=== PATIENT | female | born 1935 | race Caucasian/White ===

== ENCOUNTER 2021-06-06 13:31 | Inpatient (IN) | payer MEDICARE, BC ==
[~2021-06-06] VITALS: Ht 162.6 cm; Wt 98.0 kg
[2021-06-06] MEDS ORDERED: MONT10TA22 PO (14:21)
[2021-06-06] MEDS ORDERED: UBID100C13 PO (14:21)
[2021-06-06] MEDS ORDERED: METO-358 PO (14:21)
[2021-06-06] MEDS ORDERED: BUPR100T6 PO (14:21)
[2021-06-06] MEDS ORDERED: AMLO1CAP2 PO (14:21)
[2021-06-06] MEDS ORDERED: ACET-2154 PO (14:21)
[2021-06-06] MEDS ORDERED: CYAN-51 PO (14:21)
[2021-06-06] MEDS ORDERED: HYDR100T27 PO (14:21)
[2021-06-06] MEDS ORDERED: BUPR100T5 PO (14:21)
[2021-06-06] MEDS ORDERED: ASPI-869 PO (14:21)
[2021-06-06] MEDS ORDERED: ALBU8.5H8 INH (14:21)
[2021-06-06] MEDS ORDERED: OMEP40CA21 PO (14:21)
[2021-06-06] MEDS ORDERED: SIMV-49 PO (14:21)
[2021-06-06] MEDS ORDERED: GABA-532 PO (14:21)
[2021-06-06] MEDS ORDERED: MV-M1TAB18 PO (14:21)
[2021-06-06] MEDS ORDERED: ALPR0.5T8 PO (14:21)
[2021-06-06] MEDS ORDERED: DULO60CA45 PO (14:21)
[2021-06-06] MEDS ORDERED: MECLIZINE HCL 25 MG TABLET PO ONE ×2 (14:30→19:00)
[2021-06-06] MEDS ORDERED: MECLIZINE HCL 25 MG TABLET ONE ×2 (14:50→19:16)
[2021-06-06 15:27] LABS: HEMATOCRIT 32.3 % (31.2-41.9); MEAN CORPUSCULAR VOLUME 91.8 fL (75.5-95.3); PLATELET COUNT (AUTO) 215 K/uL (179-408)
--- NOTE | 2021-06-06 15:30 | NUR ---
Pt resting with NAD noted at this time.
[2021-06-06 15:34] LABS: CARBON DIOXIDE 24 mmol/L (21-32); CHLORIDE 107 mmol/L (98-107); CREATININE 2.2 mg/dL (0.6-1.3); GLUCOSE 109 mg/dL (74-106); POTASSIUM 4.6 mmol/L (3.5-5.1); UREA NITROGEN, BLOOD 51 mg/dL (7-18)
--- NOTE | 2021-06-06 17:00 | NUR ---
Per pt to be admitted to tele, [facility] paged and called tele floor for bed assignment.
[2021-06-06] MEDS ORDERED: ACETAMINOPHEN ES 500 MG TABLET PO ONE (19:00)
[2021-06-06] MEDS ORDERED: FUROSEMIDE 40 MG/4 ML VIAL IV ONE (19:00)
[2021-06-06] MEDS ORDERED: diphenhydrAMINE 50 MG/1 ML VIAL IV ONE (19:00)
[2021-06-06] MEDS ORDERED: METOCLOPRAMIDE HCL 10 MG/2 ML VIAL IV ONE (19:00)
[2021-06-06] MEDS ORDERED: ACETAMINOPHEN ES 500 MG TABLET ONE (19:15)
[2021-06-06] MEDS ORDERED: predniSONE 20 MG TABLET PO ONE (19:15)
[2021-06-06] MEDS ORDERED: diphenhydrAMINE 50 MG/1 ML VIAL ONE (19:16)
[2021-06-06] MEDS ORDERED: predniSONE 20 MG TABLET ONE (19:16)
[2021-06-06] MEDS ORDERED: FUROSEMIDE 40 MG/4 ML VIAL ONE (19:16)
[2021-06-06] MEDS ORDERED: predniSONE 10 MG TABLET ONE (19:16)
[2021-06-06] MEDS ORDERED: METOCLOPRAMIDE HCL 10 MG/2 ML VIAL ONE (19:16)
[2021-06-06] MEDS ORDERED: predniSONE 50 MG TABLET ONE (19:16)
--- NOTE | 2021-06-06 20:00 | NUR ---
Pt ate dinner, tolerated well, NAD noted.
--- NOTE | 2021-06-06 21:30 | NUR ---
SBAR report given to Isha on tele floor via telephone.
--- NOTE | 2021-06-06 22:20 | NUR ---
Pt trans to tele floor, NAD noted.
--- NOTE | 2021-06-06 22:30 | NUR ---
RECEIVED PATIENT VIA W/C FROM ER. A/O X4. DENIES ANY PAIN OR DISCOMFORT. NO RESP. DISTRESS NOTED. DENIES SOB. VS WNL. H/L INTACT AND PATENT. ORIENTED TO ROOM AND CALL LIGHT. CALL LIGHT IN REACH. ALL NEEDS ATTENDED. WILL CONTINUE TO MONITOR AND ASSESS.
[2021-06-06 22:40] VITALS: BP 178/52
[2021-06-06] MEDS ORDERED: BUMETANIDE INJ 6 MG in IV DEXTROSE 5% 36 ML IV ONE (23:30)
[2021-06-06] MEDS ORDERED: ALBUTEROL SULFATE 8 GM HFA.AER.AD INH PRN (23:30)
[2021-06-06] MEDS ORDERED: ONDANSETRON 4 MG/2 ML VIAL IV PRN (23:45)
[2021-06-06] MEDS ORDERED: Z GUARD REMEDY PASTE 57 GM TUBE TOP PRN (23:45)
[2021-06-06] MEDS ORDERED: ENOXAPARIN SODIUM 40 MG/0.4 ML DISP.SYRIN SQ SCH (23:45)
[2021-06-07 00:03] VITALS: BP 155/50
[2021-06-07] MEDS ORDERED: BUMETANIDE 2.5 MG/10 ML VIAL ONE (00:14)
[2021-06-07] MEDS ORDERED: BUMETANIDE 1 MG/4 ML VIAL ONE (00:14)
[2021-06-07 04:15] VITALS: BP 160/53
[2021-06-07 05:54] LABS: HEMATOCRIT 34.1 % (31.2-41.9); MEAN CORPUSCULAR HEMOGLOBIN 29.9 uug (24.7-32.8); MEAN CORPUSCULAR VOLUME 92.6 fL (75.5-95.3); PLATELET COUNT (AUTO) 223 K/uL (179-408)
[2021-06-07 06:03] LABS: ALANINE AMINOTRANSFERASE 11 U/L (14-59); ALKALINE PHOSPHATASE 91 U/L (50-136); ASPARTATE AMINOTRANSFERASE 8 U/L (15-37); BILIRUBIN,TOTAL 0.3 mg/dL (0.2-1.0); CARBON DIOXIDE 23 mmol/L (21-32); CHLORIDE 107 mmol/L (98-107); CHOLESTEROL 125 mg/dL (<200); CREATININE 2.4 mg/dL (0.6-1.3); GLUCOSE 182 mg/dL (74-106); HDL CHOLESTEROL 73 mg/dL (40-60); MAGNESIUM 2.3 mg/dL (1.8-2.4); PHOSPHOROUS 4.1 mg/dL (2.5-4.9); POTASSIUM 4.5 mmol/L (3.5-5.1); TOTAL PROTEIN, SERUM 7.3 g/dL (6.4-8.2); TRIGLYCERIDES 48 MG/DL (30-150); UREA NITROGEN, BLOOD 52 mg/dL (7-18)
[2021-06-07 06:11] LABS: THYROID STIMULATING HORMONE 1.135 mIU/mL (0.358-3.740)
--- NOTE | 2021-06-07 06:20 | NUR ---
PATIENT ASLEEP. ON TELE SB. VSS. CALL LIGHT IN REACH. ALL NEEDS ATTENDED. WILL CONTINUE TO MONITOR AND ASSESS.
[2021-06-07] MEDS: methylPREDNISolone SOD SUCC 40 MG/ML VIAL IV SCH ×2 (06:34→14:00)
[2021-06-07] MEDS ORDERED: ALBUTEROL SULFATE 2.5 MG/3 ML NEBU NEB PRN (07:15)
[2021-06-07] MEDS: ACETAMINOPHEN 325 MG TABLET PO PRN ×2 (08:48→20:32)
[2021-06-07] MEDS: AMLODIPINE 10 MG TABLET PO SCH (08:49)
[2021-06-07] MEDS: buPROPion SR 100 MG TABLET.SA PO SCH (08:49)
[2021-06-07] MEDS: MONTELUKAST SODIUM 10 MG TABLET PO SCH (08:49)
[2021-06-07] MEDS: ASPIRIN EC 325 MG TABLET.DR PO SCH (08:49)
[2021-06-07] MEDS: GABAPENTIN 100 MG CAPSULE PO SCH ×2 (08:49→17:30)
[2021-06-07] MEDS: DULOXETINE 60 MG CAPSULE.DR PO SCH (08:49)
[2021-06-07] MEDS: ALPRAZOLAM 0.5 MG TABLET PO SCH ×2 (08:49→17:29)
[2021-06-07] MEDS: hydrALAZINE HCL 50 MG TABLET PO SCH ×3 (08:49→17:31)
[2021-06-07] MEDS: BENAZEPRIL HCL 20 MG TABLET PO SCH (08:50)
[2021-06-07] MEDS: CYANOCOBALAMIN 1,000 MCG TABLET PO SCH (08:50)
[2021-06-07] MEDS: METOPROLOL SUCCINATE XL 50 MG TAB.SR.24H PO SCH (08:51)
[2021-06-07] MEDS: ENOXAPARIN SODIUM 30 MG/0.3 ML DISP.SYRIN SUBCUT SCH (08:52)
--- NOTE | 2021-06-07 10:00 | NUR ---
AWAKE, ALERT & ORIENTED. SEEN BY DR. CAPONE. MED. PO FOR C/O H/A WITH MINIMAL EFFECT AFTER 45 MINS. MDS AWARE.
[2021-06-07 12:00] VITALS: BP 152/55
--- NOTE | 2021-06-07 16:00 | NUR ---
SEEN BY DR. PALACIOS. ORDERS RECEIVED. SON AT BEDSIDE.
[2021-06-07 16:32] VITALS: BP 163/53
[2021-06-07] MEDS ORDERED: methylPREDNISolone SOD SUCC 1,000 MG in IV DEXTROSE 5% 250 ML IV SCH (17:30)
[2021-06-07] MEDS: SIMVASTATIN 40 MG TABLET PO SCH (17:30)
[2021-06-07] MEDS ORDERED: METHYLPREDNISOLONE SOD SUCC IV ONE (18:00)
[2021-06-07] MEDS ORDERED: DEXTROSE 5% IV ONE (18:00)
[2021-06-07] MEDS: IPRATROPIUM BROMIDE 0.5 MG/2.5 ML NEBU NEB SCH (20:05)
[2021-06-07] MEDS: ALBUTEROL SULFATE 2.5 MG/3 ML NEBU NEB SCH (20:06)
[2021-06-07 20:23] LABS: *BILIRUBIN,URIN NEGATIVE (NEGATIVE); *BLOOD, URINE NEGATIVE (NEGATIVE); *CLARITY,URINE CLEAR (CLEAR); *COLOR,URINE YELLOW (YELLOW); *KETONES,URINE NEGATIVE (NEGATIVE); *UROBILINOGEN,URINE 0.2 E.U./dl (NORMAL); LEUKOCYTE ESTERASE ,URINE NEGATIVE (NEGATIVE); NITRITE, URINE NEGATIVE (NEGATIVE); PH,URINE 5.5 (5.0-8.0); UGLUCOSE NEGATIVE (NEGATIVE)
[2021-06-07 20:25] LABS: *URINE TOTAL PROTEIN RANDOM 106.2 mg/dL (<150/24HR)
[2021-06-07 20:30] LABS: BACTERIA,URINE FEW /HPF (NONE SEEN); RBC,URINE 0-3 /HPF (0-3); SQUAMOUS EPITHELIAL CELL,UR FEW /HPF (NONE SEEN)
[2021-06-07] MEDS: FUROSEMIDE 20 MG/2 ML VIAL IV SCH (20:32)
[2021-06-07 21:40] VITALS: BP 140/47
[2021-06-08 00:22] VITALS: BP 150/53
[2021-06-08 04:37] VITALS: BP 160/53
--- NOTE | 2021-06-08 05:23 | NUR ---
Patient AOx4. c/o MATTHEW at beginning of shift x1. Tylenol effective in achieving goal pain levels. Remains SR/SB on monitor. BP WNL overnight. BM x1 last night. Voids. No skin issues noted. No acute events occurred overnight.
[2021-06-08] MEDS: ALBUTEROL SULFATE 2.5 MG/3 ML NEBU NEB SCH ×3 (07:41→19:03)
[2021-06-08] MEDS: IPRATROPIUM BROMIDE 0.5 MG/2.5 ML NEBU NEB SCH ×3 (07:41→19:03)
[2021-06-08 07:55] LABS: ALANINE AMINOTRANSFERASE 10 U/L (14-59); ALKALINE PHOSPHATASE 85 U/L (50-136); ASPARTATE AMINOTRANSFERASE 12 U/L (15-37); BILIRUBIN,TOTAL 0.2 mg/dL (0.2-1.0); CARBON DIOXIDE 24 mmol/L (21-32); CHLORIDE 103 mmol/L (98-107); CREATINE KINASE, TOTAL 59 U/L (26-192); CREATININE 2.6 mg/dL (0.6-1.3); GLUCOSE 209 mg/dL (74-106); MAGNESIUM 2.3 mg/dL (1.8-2.4); PHOSPHOROUS 3.8 mg/dL (2.5-4.9); POTASSIUM 4.8 mmol/L (3.5-5.1); TOTAL PROTEIN, SERUM 7.1 g/dL (6.4-8.2); UREA NITROGEN, BLOOD 60 mg/dL (7-18)
[2021-06-08 08:00] VITALS: BP 147/68
--- NOTE | 2021-06-08 08:00 | NUR ---
RESTING IN BED NPO, FOR SURGERY THIS AFTERNOON. SR ON MONITOR
[2021-06-08] MEDS: METOPROLOL SUCCINATE XL 50 MG TAB.SR.24H PO SCH (08:30)
[2021-06-08 08:51] LABS: HEMATOCRIT 34.2 % (31.2-41.9); MEAN CORPUSCULAR VOLUME 91.9 fL (75.5-95.3); PLATELET COUNT (AUTO) 110 K/uL (179-408)
[2021-06-08] MEDS: ALPRAZOLAM 0.5 MG TABLET PO SCH ×2 (08:55→16:59)
[2021-06-08] MEDS: FUROSEMIDE 20 MG/2 ML VIAL IV SCH (08:56)
[2021-06-08] MEDS: hydrALAZINE HCL 50 MG TABLET PO SCH ×3 (08:57→17:00)
[2021-06-08] MEDS: CYANOCOBALAMIN 1,000 MCG TABLET PO SCH (08:57)
[2021-06-08] MEDS: ASPIRIN EC 325 MG TABLET.DR PO SCH (08:57)
[2021-06-08] MEDS: GABAPENTIN 100 MG CAPSULE PO SCH ×2 (08:57→16:59)
[2021-06-08] MEDS: AMLODIPINE 10 MG TABLET PO SCH (08:57)
[2021-06-08] MEDS: DULOXETINE 60 MG CAPSULE.DR PO SCH (08:58)
[2021-06-08] MEDS: BENAZEPRIL HCL 20 MG TABLET PO SCH (08:58)
[2021-06-08] MEDS: MONTELUKAST SODIUM 10 MG TABLET PO SCH (08:58)
[2021-06-08] MEDS: buPROPion SR 100 MG TABLET.SA PO SCH (08:58)
[2021-06-08] MEDS: ENOXAPARIN SODIUM 30 MG/0.3 ML DISP.SYRIN SUBCUT SCH (09:00)
[2021-06-08 12:00] VITALS: BP 114/51
--- NOTE | 2021-06-08 13:30 | NUR ---
BREATHING TX GIVEN PER PATIENT REQUEST
--- NOTE | 2021-06-08 13:43 | NUR ---
PATIENT WENT TO OR VIA [facility] FOR BX. REPORT GIVEN TO OR STAFF
--- NOTE | 2021-06-08 14:00 | NUR ---
BACK FROM SURGERY VIA [facility] AWAKE ALERT AND ORIENTED X3. DERMABOND DRESSING ON BILATERAL TEMPORAL AREA, NO SS OF BLEEDING. SR ON MONITOR
[2021-06-08] MEDS ORDERED: FENTANYL CITRATE 100 MCG/2 ML AMPUL ONE (14:15)
[2021-06-08] MEDS ORDERED: ALBUTEROL SULFATE 8 GM HFA.AER.AD ONE (14:16)
[2021-06-08] MEDS ORDERED: LIDOCAINE HCL 1% 20 ML VIAL ONE (14:25)
[2021-06-08] MEDS ORDERED: HYDROCODONE/APAP 5-325MG TABLET PO PRN (16:30)
[2021-06-08] MEDS: ACETAMINOPHEN 325 MG TABLET PO PRN (16:59)
[2021-06-08] MEDS: SIMVASTATIN 40 MG TABLET PO SCH (16:59)
[2021-06-08 17:00] VITALS: BP 180/53
--- NOTE | 2021-06-08 18:28 | NUR ---
NEYDA DISLODGED TRIED TO RESTART BUT TO NO AVAIL. MID LINE CALLED
[2021-06-08] MEDS: CLONIDINE HCL 0.1 MG TABLET PO SCH ×2 (20:26→22:00)
[2021-06-08 20:37] VITALS: BP 132/45
--- NOTE | 2021-06-08 21:00 | NUR ---
Rcvd pt. A/O x 4. In no acute distress. Midline in the KEN, newly inserted, patent and intact. Temporal biopsy site clean, dry and intact. No bleeding noted. Safety initiated. Call light within reach. Will continue to monitor.
[2021-06-08] MEDS: methylPREDNISolone SOD SUCC 1,000 MG in IV DEXTROSE 5% 250 ML IV SCH (21:49)
--- NOTE | 2021-06-08 22:00 | NUR ---
2200 Catapres held because last dose was less then 2 hours ago. BP WNL. Will closely monitor.
[2021-06-09 00:27] VITALS: BP 144/51
[2021-06-09 04:30] VITALS: BP 115/55
[2021-06-09] MEDS: CLONIDINE HCL 0.1 MG TABLET PO SCH ×3 (05:19→21:00)
[2021-06-09 06:31] LABS: HEMATOCRIT 33.4 % (31.2-41.9); MEAN CORPUSCULAR HEMOGLOBIN 30.1 uug (24.7-32.8); MEAN CORPUSCULAR VOLUME 92.3 fL (75.5-95.3); PLATELET COUNT (AUTO) 256 K/uL (179-408)
[2021-06-09 06:58] LABS: CARBON DIOXIDE 26 mmol/L (21-32); CHLORIDE 105 mmol/L (98-107); CREATININE 2.9 mg/dL (0.6-1.3); GLUCOSE 229 mg/dL (74-106); MAGNESIUM 2.3 mg/dL (1.8-2.4); POTASSIUM 4.8 mmol/L (3.5-5.1); UREA NITROGEN, BLOOD 68 mg/dL (7-18)
--- NOTE | 2021-06-09 07:24 | NUR ---
Noted SB 39, patient sleeping, not in distress
[2021-06-09] MEDS: IPRATROPIUM BROMIDE 0.5 MG/2.5 ML NEBU NEB SCH ×3 (07:28→19:17)
[2021-06-09] MEDS: ALBUTEROL SULFATE 2.5 MG/3 ML NEBU NEB SCH ×3 (07:28→19:17)
--- NOTE | 2021-06-09 07:45 | NUR ---
Sleeping, appears comfortable. HHN treatment ongoing.
[2021-06-09] MEDS: DULOXETINE 60 MG CAPSULE.DR PO SCH (10:07)
[2021-06-09] MEDS: ASPIRIN EC 325 MG TABLET.DR PO SCH (10:08)
[2021-06-09] MEDS: GABAPENTIN 100 MG CAPSULE PO SCH ×2 (10:08→18:01)
[2021-06-09] MEDS: hydrALAZINE HCL 50 MG TABLET PO SCH ×3 (10:08→18:02)
[2021-06-09] MEDS: AMLODIPINE 10 MG TABLET PO SCH (10:08)
[2021-06-09] MEDS: METOPROLOL SUCCINATE XL 50 MG TAB.SR.24H PO SCH (10:09)
[2021-06-09] MEDS: CYANOCOBALAMIN 1,000 MCG TABLET PO SCH (10:09)
[2021-06-09] MEDS: MONTELUKAST SODIUM 10 MG TABLET PO SCH (10:09)
[2021-06-09] MEDS: ALPRAZOLAM 0.5 MG TABLET PO SCH ×2 (10:10→18:01)
[2021-06-09] MEDS: buPROPion SR 100 MG TABLET.SA PO SCH (10:10)
[2021-06-09] MEDS: ENOXAPARIN SODIUM 30 MG/0.3 ML DISP.SYRIN SUBCUT SCH (10:11)
[2021-06-09 11:13] VITALS: BP 110/70
[2021-06-09 11:39] VITALS: BP 139/56
--- NOTE | 2021-06-09 14:01 | NUR ---
Noted pause on tele and SB at 37. Patient awake, sitting at the edge of bed, playing cards with daughter. Dr. Tyson informed.
[2021-06-09 15:20] VITALS: BP 131/49
--- NOTE | 2021-06-09 15:30 | NUR ---
Complained of headache. Tylenol po given, with relief
[2021-06-09] MEDS: ACETAMINOPHEN 325 MG TABLET PO PRN (15:40)
[2021-06-09] MEDS ORDERED: PROPOFOL 200 MG/20 ML BOTTLE IV ONE (15:45)
--- NOTE | 2021-06-09 17:00 | NUR ---
For CT Biopsy renal tomorrow, patient and daughter informed.
[2021-06-09] MEDS: SIMVASTATIN 40 MG TABLET PO SCH (18:01)
[2021-06-09] MEDS: methylPREDNISolone SOD SUCC 1,000 MG in IV DEXTROSE 5% 250 ML IV SCH (18:15)
--- NOTE | 2021-06-09 19:00 | NUR ---
Resting comfortably, not in distress.
--- NOTE | 2021-06-09 19:30 | NUR ---
RECEIVED PT AWAKE,ALERT AND ORIENTEDX4. PT IN NO ACUTE DISTRESS. PT ASSISTED TO THE RESTROOM. IV INTACT. SAFETY AND COMFORT PROVIDED. WILL CONTINUE TO MONITOR.
[2021-06-09 20:00] VITALS: BP 135/60
[2021-06-09] MEDS: HYDROCODONE/APAP 5-325MG TABLET PO PRN (21:00)
--- NOTE | 2021-06-09 21:49 | NUR ---
returned call to Araceli(daughter). left a voicemail.
--- NOTE | 2021-06-09 22:00 | NUR ---
DAUGHTER OF PT CALLED BACK. TAQLKED ABOUT HER MOTHER WANTING PICC LINE. TOLD TUCKER(DAUGHTER) THAT I WILL ASK THE DOCTOR .
--- NOTE | 2021-06-09 22:56 | NUR ---
NOTIFY DOUG BRADFORD REGARDING PT WANTING PICC LINE. DENICE CAMACHO NP REPLIED THAT NO PICC. NO INDICATION. INCREASE RISK OF SERIOUS INFECTION.
[2021-06-10] VITALS: BP 146/55
[2021-06-10 04:00] VITALS: BP 153/59
--- NOTE | 2021-06-10 05:12 | NUR ---
PT SLEPT INTERMITTENTLY. PT IN NO ACUTE DISTRESS. IV INTACT. PRESCRIBED MEDICATION GIVEN AND PT TOLERATED IT WELL. CONSENT SIGNED FOR THE CTA BIOPSY RENAL. SAFETY AND COMFORT PROVIDED. WILL ENDORSE TO INCOMING NURSE FOR CONTINUITY OF CARE.
[2021-06-10] MEDS: CLONIDINE HCL 0.1 MG TABLET PO SCH ×3 (05:47→23:00)
[2021-06-10 06:32] LABS: HEMATOCRIT 35.1 % (31.2-41.9); MEAN CORPUSCULAR HEMOGLOBIN 29.5 uug (24.7-32.8); MEAN CORPUSCULAR VOLUME 92.1 fL (75.5-95.3); PLATELET COUNT (AUTO) 262 K/uL (179-408)
[2021-06-10 06:55] LABS: CARBON DIOXIDE 26 mmol/L (21-32); CHLORIDE 98 mmol/L (98-107); CREATININE 2.7 mg/dL (0.6-1.3); GLUCOSE 237 mg/dL (74-106); MAGNESIUM 2.3 mg/dL (1.8-2.4); PHOSPHOROUS 4.2 mg/dL (2.5-4.9); POTASSIUM 4.9 mmol/L (3.5-5.1); UREA NITROGEN, BLOOD 75 mg/dL (7-18)
--- NOTE | 2021-06-10 07:30 | NUR ---
Sleeping, appears comfortable. Tele SB 40s. NPO maintained, for CT Renal biopsy
[2021-06-10] MEDS: IPRATROPIUM BROMIDE 0.5 MG/2.5 ML NEBU NEB SCH ×3 (07:57→19:21)
[2021-06-10] MEDS: ALBUTEROL SULFATE 2.5 MG/3 ML NEBU NEB SCH ×3 (07:57→19:21)
[2021-06-10] MEDS: hydrALAZINE HCL 50 MG TABLET PO SCH ×3 (09:00→17:14)
[2021-06-10] MEDS: METOPROLOL SUCCINATE XL 50 MG TAB.SR.24H PO SCH (09:00)
[2021-06-10 09:06] LABS: A/G RATIO 1.1 (0.7-1.7); ALBUMIN 3.4 g/dL (2.9-4.4); ALPHA-1-GLOBULIN 0.3 g/dL (0.0-0.4); GAMMA GLOBULIN 0.9 g/dL (0.4-1.8); GLOBULIN, TOTAL 3.2 g/dL (2.2-3.9); M-SPIKE Not Observed g/dL (Not Observed)
[2021-06-10] MEDS: MONTELUKAST SODIUM 10 MG TABLET PO SCH (10:36)
[2021-06-10] MEDS: ALPRAZOLAM 0.5 MG TABLET PO SCH ×2 (10:36→17:14)
[2021-06-10] MEDS: AMLODIPINE 10 MG TABLET PO SCH (10:36)
[2021-06-10] MEDS: GABAPENTIN 100 MG CAPSULE PO SCH ×2 (10:36→17:14)
[2021-06-10] MEDS: CYANOCOBALAMIN 1,000 MCG TABLET PO SCH (10:36)
[2021-06-10] MEDS: buPROPion SR 100 MG TABLET.SA PO SCH (10:36)
[2021-06-10] MEDS: DULOXETINE 60 MG CAPSULE.DR PO SCH (10:41)
[2021-06-10 12:00] VITALS: BP 108/54
[2021-06-10] MEDS: ASPIRIN EC 325 MG TABLET.DR PO SCH (12:00)
--- NOTE | 2021-06-10 12:00 | NUR ---
CT renal biopsy will not be done due to intake of Aspirin per Radiology. Holland Panda informed. Patient informed, diet resumed.
[2021-06-10 16:00] VITALS: BP 141/51
[2021-06-10] MEDS: ACETAMINOPHEN 325 MG TABLET PO PRN (17:14)
[2021-06-10] MEDS: SIMVASTATIN 40 MG TABLET PO SCH (17:14)
--- NOTE | 2021-06-10 17:14 | NUR ---
Complained of headache, Tylenol po given with relief, resting after
--- NOTE | 2021-06-10 19:45 | NUR ---
PATIENT ALERT ORIENTED, NO SOB NO CHEST PAIN, TELE MONITOR SINUS SAMIA 53, NO COMPLAIN OF HEADACHES AT THIS TIME, CALL LIGHT WITHIN REACH. CONT TO MONITOR.
[2021-06-10 20:06] VITALS: BP 133/48
[2021-06-11 00:13] VITALS: BP 137/50
[2021-06-11 04:49] VITALS: BP 159/61
[2021-06-11] MEDS: CLONIDINE HCL 0.1 MG TABLET PO SCH ×2 (06:30→14:14)
[2021-06-11] MEDS: ACETAMINOPHEN 325 MG TABLET PO PRN (06:46)
--- NOTE | 2021-06-11 07:01 | NUR ---
PATIENT ALERT ORIENTED, NO SOB NO CHEST PAIN, ON TELE MONITOR SINUS RHTYHM HR 63. PATIENT COMPLAIN OF HEADACHES, REQUEST FOR TYLENOL, ASSISTED WITH TOILETING, CONT TO MONITOR.
[2021-06-11 07:11] LABS: HEMATOCRIT 34.7 % (31.2-41.9); MEAN CORPUSCULAR HEMOGLOBIN 30.7 uug (24.7-32.8); MEAN CORPUSCULAR VOLUME 92.8 fL (75.5-95.3); PLATELET COUNT (AUTO) 268 K/uL (179-408)
[2021-06-11] MEDS: IPRATROPIUM BROMIDE 0.5 MG/2.5 ML NEBU NEB SCH ×2 (07:52→13:30)
[2021-06-11] MEDS: ALBUTEROL SULFATE 2.5 MG/3 ML NEBU NEB SCH ×2 (07:52→13:30)
[2021-06-11 08:12] LABS: CARBON DIOXIDE 26 mmol/L (21-32); CHLORIDE 102 mmol/L (98-107); CREATININE 2.4 mg/dL (0.6-1.3); GLUCOSE 171 mg/dL (74-106); MAGNESIUM 2.4 mg/dL (1.8-2.4); POTASSIUM 4.6 mmol/L (3.5-5.1); UREA NITROGEN, BLOOD 72 mg/dL (7-18)
[2021-06-11] MEDS: MONTELUKAST SODIUM 10 MG TABLET PO SCH (08:39)
[2021-06-11] MEDS: buPROPion SR 100 MG TABLET.SA PO SCH (08:39)
[2021-06-11] MEDS: DULOXETINE 60 MG CAPSULE.DR PO SCH (08:39)
[2021-06-11] MEDS: ASPIRIN EC 325 MG TABLET.DR PO SCH (08:39)
[2021-06-11] MEDS: CYANOCOBALAMIN 1,000 MCG TABLET PO SCH (08:39)
[2021-06-11] MEDS: ALPRAZOLAM 0.5 MG TABLET PO SCH (08:41)
[2021-06-11] MEDS: HYDROCODONE/APAP 5-325MG TABLET PO PRN ×2 (08:41→14:14)
[2021-06-11] MEDS: AMLODIPINE 10 MG TABLET PO SCH (08:41)
[2021-06-11] MEDS: GABAPENTIN 100 MG CAPSULE PO SCH (08:42)
[2021-06-11] MEDS: hydrALAZINE HCL 50 MG TABLET PO SCH ×2 (08:42→14:13)
[2021-06-11] MEDS ORDERED: METOPROLOL SUCCINATE XL 50 MG TAB.SR.24H PO SCH (09:00)
--- NOTE | 2021-06-11 09:00 | NUR ---
AWAKE, ALERT. Voiding qs. anxious to be discharged. Med. po for c/o h/a with good effect after 40 mins.
[2021-06-11 09:06] VITALS: BP 146/52
[2021-06-11 11:53] VITALS: BP 138/67
--- NOTE | 2021-06-11 13:00 | NUR ---
Dr. Wallace and Holland Panda here. Patient feeling better.
[2021-06-11] MEDS ORDERED: PRED20TA PO (13:44)
[2021-06-11] MEDS ORDERED: predniSONE 20 MG TABLET PO ONE (13:45)
[2021-06-11 14:14] VITALS: BP 138/67
--- NOTE | 2021-06-11 15:00 | NUR ---
Midline dc'd. Angiocath removed intact. Prepared for discharge.
--- NOTE | 2021-06-11 15:30 | NUR ---
Discharged via w/c, accompanied by Liz owusu to daughter in auto. No distress noted.
== END 2021-06-11 15:30 | DRG 166 ==
LOC: ER 13:31 → TELE3 22:08
PROVIDERS: ADMIT Nurse Practitioner Acute Care; ATTEND Nurse Practitioner Acute Care
PROC: 05H933Z Insertion of Infusion Device into Right Brachial Vein, Percutaneous Approach (ICD-10-PCS; principal; 2021-06-08)
PROC: 03BT0ZX Excision of Left Temporal Artery, Open Approach, Diagnostic (ICD-10-PCS; 2021-06-08)
PROC: 03BS0ZX Excision of Right Temporal Artery, Open Approach, Diagnostic (ICD-10-PCS; 2021-06-08)
DX: J44.1 Chronic obstructive pulmonary disease with (acute) exacerbation (principal); I50.33 Acute on chronic diastolic (congestive) heart failure; I13.0 Hypertensive heart and chronic kidney disease with heart failure and stage 1 through stage 4 chronic kidney disease, or unspecified chronic kidney disease; N17.9 Acute kidney failure, unspecified; I45.10 Unspecified right bundle-branch block; I25.2 Old myocardial infarction; K21.9 Gastro-esophageal reflux disease without esophagitis; Z20.822 Contact with and (suspected) exposure to COVID-19; G43.909 Migraine, unspecified, not intractable, without status migrainosus; E78.5 Hyperlipidemia, unspecified; Z90.49 Acquired absence of other specified parts of digestive tract; R80.9 Proteinuria, unspecified; F32.9 Major depressive disorder, single episode, unspecified; F41.9 Anxiety disorder, unspecified; D64.9 Anemia, unspecified; Z96.653 Presence of artificial knee joint, bilateral; Z96.611 Presence of right artificial shoulder joint; Z96.642 Presence of left artificial hip joint; M19.90 Unspecified osteoarthritis, unspecified site; E66.01 Morbid (severe) obesity due to excess calories; Z68.37 Body mass index [BMI] 37.0-37.9, adult
CPT/HCPCS: 36415; 70030-TC; 70450; 71045; 76770; 83605; 83735; 83970; 84100; 84155; 84156; 84165; 84300; 84443; 85025; 85610; 85651; 85730; 86140; 86920; 87040; 93005; 93307; 94640; 94664; 97161; A4663; A9150; G0378; J1200; J1650; J1940; J2765; J2920; J2930; J3010; J3490; J3535; J3590; J7050; J7060; J7512; J8597

== ENCOUNTER 2021-08-05 14:46 | Inpatient (IN) | payer MEDICARE, BC ==
[~2021-08-05] VITALS: Ht 157.5 cm; Wt 113.4 kg
[~2021-08-05 14:46] MED LIST: ACET-2154 PO; ALBU8.5H8 INH; ALPR0.5T8 PO; AMLO1CAP2 PO; ASPI-869 PO; BUPR100T5 PO; BUPR100T6 PO; CYAN-51 PO; DULO60CA45 PO; GABA-532 PO; HYDR100T27 PO; METO-358 PO; MONT10TA22 PO; MV-M1TAB18 PO; OMEP40CA21 PO; PRED20TA PO; SIMV-49 PO; UBID100C13 PO
--- NOTE | 2021-08-06 15:10 | NUR ---
Patient admitted to the unit [facility] via gurney. Patient in oxygen via nasal cannula @ 2LPM saturating at 95%. Alert and oriented x 4. Patient able to follow simple commands. Pleasant and cooperative upon assessment. Patient deneis of any pain at this time. VS taken. Body assessment done. Patient belongings were checked. Notified Dr. Cary as on-call for med recon. Per Dr Cary to continue all meds from [place] and ordered for CBC, BMP, Magnesium and Phosphorus in AM. Notified Dr. Ramirez of the admission.
[2021-08-06 15:39] VITALS: BP 131/44
[2021-08-06] MEDS ORDERED: BUME2TAB7 PO (17:11)
[2021-08-06] MEDS ORDERED: EPOE4000 SQ (17:11)
[2021-08-06] MEDS ORDERED: CLON0.1T PO (17:11)
[2021-08-06] MEDS ORDERED: CARV6.252 PO (17:11)
[2021-08-06] MEDS ORDERED: ACET500C4 PO (17:11)
[2021-08-06] MEDS ORDERED: BISA10SU61 RC (17:11)
[2021-08-06] MEDS ORDERED: DOXA2TAB2 PO (17:11)
[2021-08-06] MEDS ORDERED: ALBU2.5V13 IH (17:11)
[2021-08-06] MEDS ORDERED: ATOR20TA PO (17:11)
[2021-08-06] MEDS ORDERED: ALBU8HFA4 (17:11)
[2021-08-06] MEDS ORDERED: HYDR-4077 PO (17:11)
[2021-08-06] MEDS ORDERED: HYDR-894 PO (17:11)
[2021-08-06] MEDS ORDERED: BUDE0.5A4 IH (17:11)
[2021-08-06] MEDS ORDERED: ISOS60TA72 PO (17:11)
[2021-08-06] MEDS ORDERED: LINA5TAB PO (17:11)
[2021-08-06] MEDS ORDERED: PANT40TA49 PO (17:12)
[2021-08-06] MEDS ORDERED: MONT10TA33 PO (17:12)
[2021-08-06] MEDS ORDERED: PANT40TA2 PO (17:12)
[2021-08-06] MEDS ORDERED: PHEN26CR2 RC (17:12)
[2021-08-06] MEDS ORDERED: ZINC56.713 TP (17:12)
[2021-08-06] MEDS ORDERED: ZINC (17:12)
[2021-08-06] MEDS ORDERED: NYST15CR TP (17:12)
[2021-08-06] MEDS ORDERED: NIFE30TA2 PO (17:12)
[2021-08-06] MEDS ORDERED: INSU100V11 (17:12)
[2021-08-06] MEDS ORDERED: INSU100V7 SQ (17:23)
[2021-08-06] MEDS ORDERED: DEXT37.54 BU (17:23)
[2021-08-06] MEDS ORDERED: GLUC1KIT IJ (17:23)
[2021-08-06] MEDS ORDERED: DEXT37.54 PO (17:23)
--- NOTE | 2021-08-06 17:30 | NUR ---
patient blood sugar is 199.Patient is actually in the middle of eating her dinner at this time. Endorsed to the next shift accordingly.
[2021-08-06] MEDS ORDERED: DEXTROSE 50% 50 ML DISP.SYRIN IV PRN (17:45)
[2021-08-06] MEDS ORDERED: Z GUARD REMEDY PASTE 57 GM TUBE TOP PRN (18:00)
[2021-08-06] MEDS ORDERED: BISACODYL 10 MG SUPP.RECT RC PRN (18:15)
[2021-08-06] MEDS ORDERED: GLUCAGON,HUMAN RECOMBINANT 1 MG VIAL IVP PRN (18:15)
[2021-08-06] MEDS ORDERED: PATIENT MAY USE OWN MED- MD OK RC PRN (18:15)
[2021-08-06] MEDS ORDERED: ACETAMINOPHEN ES 500 MG TABLET PO PRN (18:15)
[2021-08-06] MEDS ORDERED: CLONIDINE HCL 0.1 MG TABLET PO PRN (18:15)
[2021-08-06] MEDS ORDERED: HYDROCORTISONE 2.5 % RECTAL CREAM 28.35 GM TUBE RC PRN (19:00)
[2021-08-06 20:09] VITALS: BP 152/55
[2021-08-06] MEDS: BUDESONIDE 0.5 MG/2 ML NEBU IH SCH (20:31)
[2021-08-06] MEDS: ALBUTEROL SULFATE 2.5 MG/ 0.5 ML NEBU IH SCH (20:31)
[2021-08-06] MEDS: DOXAZOSIN 2 MG TABLET PO SCH (20:36)
[2021-08-06] MEDS: predniSONE 20 MG TABLET PO SCH (20:36)
[2021-08-06] MEDS: CARVEDILOL 6.25 MG TABLET PO SCH (20:36)
[2021-08-06] MEDS: ATORVASTATIN 20 MG TABLET PO SCH (20:37)
[2021-08-06] MEDS: MONTELUKAST SODIUM 10 MG TABLET PO SCH (20:37)
[2021-08-06] MEDS: NYSTATIN CREAM 30 GM TUBE TP SCH (20:37)
[2021-08-06] MEDS: BLOOD SUGAR DIAGNOSTIC 1 EACH STRIP VI SCH (20:41)
[2021-08-06] MEDS: INSULIN REGULAR, HUMAN 300 UNIT/3 ML VIAL SQ PRN (20:44)
[2021-08-06] MEDS: NIFEdipine XL 30 MG TABSR PO SCH (22:31)
[2021-08-06] MEDS: hydrALAZINE HCL 50 MG TABLET PO SCH (22:31)
[2021-08-07] MEDS: ALBUTEROL SULFATE 2.5 MG/ 0.5 ML NEBU IH SCH ×5 (01:30→19:11)
[2021-08-07 04:12] VITALS: BP 176/69
[2021-08-07] MEDS: BLOOD SUGAR DIAGNOSTIC 1 EACH STRIP VI SCH ×4 (06:20→20:39)
[2021-08-07 06:35] LABS: HEMATOCRIT 28.4 % (31.2-41.9); MEAN CORPUSCULAR VOLUME 96.2 fL (75.5-95.3); PLATELET COUNT (AUTO) 102 K/uL (179-408)
[2021-08-07] MEDS: hydrALAZINE HCL 25 MG TABLET PO PRN (06:46)
[2021-08-07 07:00] LABS: CARBON DIOXIDE 31 mmol/L (21-32); CHLORIDE 107 mmol/L (98-107); CREATININE 1.9 mg/dL (0.6-1.3); GLUCOSE 170 mg/dL (74-106); MAGNESIUM 2.4 mg/dL (1.8-2.4); PHOSPHOROUS 4.3 mg/dL (2.5-4.9); POTASSIUM 4.6 mmol/L (3.5-5.1); UREA NITROGEN, BLOOD 49 mg/dL (7-18)
[2021-08-07] MEDS: BUDESONIDE 0.5 MG/2 ML NEBU IH SCH ×3 (07:45→19:00)
[2021-08-07 08:19] VITALS: BP 155/62
[2021-08-07] MEDS: BUMETANIDE 1 MG TABLET PO SCH (09:13)
[2021-08-07] MEDS: ISOSORBIDE MONONITRATE 60 MG TAB.SR.24H PO SCH (09:14)
[2021-08-07] MEDS: LINAGLIPTIN 5 MG TABLET PO SCH (09:14)
[2021-08-07] MEDS: CARVEDILOL 6.25 MG TABLET PO SCH ×2 (09:15→17:03)
[2021-08-07] MEDS: DOXAZOSIN 2 MG TABLET PO SCH ×2 (09:15→17:02)
[2021-08-07] MEDS: hydrALAZINE HCL 50 MG TABLET PO SCH ×2 (09:16→20:12)
[2021-08-07] MEDS: predniSONE 20 MG TABLET PO SCH ×2 (09:16→17:19)
[2021-08-07] MEDS: NIFEdipine XL 30 MG TABSR PO SCH ×2 (09:17→20:12)
[2021-08-07] MEDS: INSULIN GLARGINE,HUM 300 UNITS/3 ML CARTRIDGE SQ SCH (09:19)
[2021-08-07] MEDS: Z GUARD REMEDY PASTE 57 GM TUBE TP SCH ×2 (09:20→17:14)
[2021-08-07] MEDS: NYSTATIN CREAM 30 GM TUBE TP SCH ×2 (09:20→17:15)
--- NOTE | 2021-08-07 09:30 | NUR ---
Patient in bed, alert and oriented x 4, denies of any pain at this time. KEN PICC line intact. Patient on oxygen at 2LPM saturating at 95%. All due meds given per MD order. Kept skin clean and dry. All needs met promptly. Placed call light within easy reach.
[2021-08-07] MEDS ORDERED: predniSONE 20 MG TABLET PO ONE (10:15)
[2021-08-07] MEDS: PANTOPRAZOLE SODIUM 40 MG TABLET.DR PO SCH (10:23)
[2021-08-07] MEDS ORDERED: HYDROCORTISONE 1% CREAM 30 GM TUBE TP PRN (11:15)
[2021-08-07] MEDS: INSULIN REGULAR, HUMAN 300 UNIT/3 ML VIAL SQ PRN ×3 (12:23→20:47)
[2021-08-07 15:43] VITALS: BP 145/61
[2021-08-07] MEDS: ATORVASTATIN 20 MG TABLET PO SCH (20:11)
[2021-08-07] MEDS: MONTELUKAST SODIUM 10 MG TABLET PO SCH (20:11)
[2021-08-07 20:45] VITALS: BP 142/64
[2021-08-08] MEDS: ALBUTEROL SULFATE 2.5 MG/ 0.5 ML NEBU IH SCH ×4 (01:22→19:34)
--- NOTE | 2021-08-08 01:22 | NUR ---
Patient refused tx. Nurse Karol aware.
[2021-08-08 04:51] VITALS: BP 155/69
[2021-08-08] MEDS: BLOOD SUGAR DIAGNOSTIC 1 EACH STRIP VI SCH ×4 (06:04→20:29)
[2021-08-08] MEDS: BUDESONIDE 0.5 MG/2 ML NEBU IH SCH ×2 (07:05→19:00)
--- NOTE | 2021-08-08 07:30 | NUR ---
RECEIVED PATIENT ALERT/ORIENTEDX4, ON CONTINUOUS OXYGEN AT 2L VIA NC, SATURATING AT 96%. DENIES SOB. DENIES PAIN AT THIS TIME. DENIES DISCOMFORT. KEPT CALL LIGHT WITHIN REACH. WILL CONTINUE TO MONITOR.
[2021-08-08 08:00] VITALS: BP 174/82
[2021-08-08] MEDS: BUMETANIDE 1 MG TABLET PO SCH (08:23)
[2021-08-08] MEDS: PANTOPRAZOLE SODIUM 40 MG TABLET.DR PO SCH (08:23)
[2021-08-08] MEDS: hydrALAZINE HCL 50 MG TABLET PO SCH ×2 (08:24→20:25)
[2021-08-08] MEDS: ISOSORBIDE MONONITRATE 60 MG TAB.SR.24H PO SCH (08:24)
[2021-08-08] MEDS: LINAGLIPTIN 5 MG TABLET PO SCH (08:25)
[2021-08-08] MEDS: predniSONE 20 MG TABLET PO SCH (08:25)
[2021-08-08] MEDS: CARVEDILOL 6.25 MG TABLET PO SCH ×2 (08:26→16:56)
[2021-08-08] MEDS: NIFEdipine XL 30 MG TABSR PO SCH ×2 (08:27→20:25)
[2021-08-08] MEDS: DOXAZOSIN 2 MG TABLET PO SCH ×2 (08:27→16:55)
[2021-08-08] MEDS: INSULIN GLARGINE,HUM 300 UNITS/3 ML CARTRIDGE SQ SCH (08:29)
[2021-08-08] MEDS: INSULIN REGULAR, HUMAN 300 UNIT/3 ML VIAL SQ PRN ×4 (08:31→20:32)
[2021-08-08] MEDS: Z GUARD REMEDY PASTE 57 GM TUBE TP SCH ×2 (08:32→16:56)
[2021-08-08] MEDS: NYSTATIN CREAM 30 GM TUBE TP SCH ×2 (08:32→16:56)
[2021-08-08] MEDS ORDERED: [UNRECOGNIZED DRUG - REMARK] RC PRN (11:00)
[2021-08-08 16:00] VITALS: BP 111/66
--- NOTE | 2021-08-08 18:42 | NUR ---
PATIENT REMAINED STABLE. NO DISTRESS IDENTIFIED. ALL NEEDS ATTENDED. DUE MEDS GIVEN. FREQUENT CHECKS DONE. WILL ENDORSE TO THE NEXT SHIFT FOR CONTINUITY OF CARE.
[2021-08-08 20:15] VITALS: BP 159/63
[2021-08-08] MEDS: MONTELUKAST SODIUM 10 MG TABLET PO SCH (20:25)
[2021-08-08] MEDS: ATORVASTATIN 20 MG TABLET PO SCH (20:25)
[2021-08-09] MEDS: ALBUTEROL SULFATE 2.5 MG/ 0.5 ML NEBU IH SCH ×4 (01:30→21:16)
[2021-08-09 04:10] VITALS: BP 144/59
[2021-08-09] MEDS: BLOOD SUGAR DIAGNOSTIC 1 EACH STRIP VI SCH ×4 (05:35→20:45)
[2021-08-09 06:12] LABS: HEMATOCRIT 27.9 % (31.2-41.9); MEAN CORPUSCULAR HEMOGLOBIN 31.4 uug (24.7-32.8); MEAN CORPUSCULAR VOLUME 94.9 fL (75.5-95.3); PLATELET COUNT (AUTO) 103 K/uL (179-408)
[2021-08-09 06:19] LABS: CARBON DIOXIDE 31 mmol/L (21-32); CHLORIDE 105 mmol/L (98-107); GLUCOSE 135 mg/dL (74-106); POTASSIUM 4.1 mmol/L (3.5-5.1); UREA NITROGEN, BLOOD 64 mg/dL (7-18)
--- NOTE | 2021-08-09 06:47 | NUR ---
Slept well. No s/s of respiratory distress. Tolerated Oxygen 2L/min via NC saturating 96-98%. No complaint presented. No significant event reported all night. All needs attended and met. Continue current rehab plan of felipe.
[2021-08-09 07:30] VITALS: BP 144/53
[2021-08-09] MEDS: BUDESONIDE 0.5 MG/2 ML NEBU IH SCH ×2 (07:31→21:16)
[2021-08-09] MEDS: ISOSORBIDE MONONITRATE 60 MG TAB.SR.24H PO SCH (10:18)
[2021-08-09] MEDS: PANTOPRAZOLE SODIUM 40 MG TABLET.DR PO SCH (10:19)
[2021-08-09] MEDS: predniSONE 20 MG TABLET PO SCH (10:19)
[2021-08-09] MEDS: LINAGLIPTIN 5 MG TABLET PO SCH (10:19)
[2021-08-09] MEDS: hydrALAZINE HCL 50 MG TABLET PO SCH ×2 (10:20→20:42)
[2021-08-09] MEDS: CARVEDILOL 6.25 MG TABLET PO SCH ×2 (10:21→17:00)
[2021-08-09] MEDS: DOXAZOSIN 2 MG TABLET PO SCH ×2 (10:21→17:02)
[2021-08-09] MEDS: BUMETANIDE 1 MG TABLET PO SCH (10:22)
[2021-08-09] MEDS: NIFEdipine XL 30 MG TABSR PO SCH ×2 (10:22→20:42)
[2021-08-09] MEDS: INSULIN GLARGINE,HUM 300 UNITS/3 ML CARTRIDGE SQ SCH (10:24)
[2021-08-09] MEDS: NYSTATIN CREAM 30 GM TUBE TP SCH ×2 (10:25→17:04)
[2021-08-09] MEDS: Z GUARD REMEDY PASTE 57 GM TUBE TP SCH ×2 (10:26→17:04)
--- NOTE | 2021-08-09 13:11 | NUR ---
INDIVIDUALIZED PLAN OF CARE
[2021-08-09 15:55] VITALS: BP 138/52
[2021-08-09 20:10] VITALS: BP 144/61
[2021-08-09] MEDS: ATORVASTATIN 20 MG TABLET PO SCH (20:42)
[2021-08-09] MEDS: MONTELUKAST SODIUM 10 MG TABLET PO SCH (20:42)
[2021-08-09] MEDS: INSULIN REGULAR, HUMAN 300 UNIT/3 ML VIAL SQ PRN (20:47)
[2021-08-10] MEDS: ALBUTEROL SULFATE 2.5 MG/ 0.5 ML NEBU IH SCH ×4 (01:20→20:25)
[2021-08-10 04:06] VITALS: BP 160/77
[2021-08-10] MEDS: BLOOD SUGAR DIAGNOSTIC 1 EACH STRIP VI SCH ×4 (05:32→20:28)
--- NOTE | 2021-08-10 06:17 | NUR ---
Slept good. VS stable. On continuos pulse oximeter monitoring saturating 94-98% with periods of desaturations 82-88% while asleep. No s/s of respiratory distress. No s/s of hypo/hyperglycemia. All needs attended and met. Continue current rehab plan of care.
[2021-08-10 08:00] VITALS: BP 179/76
[2021-08-10 08:15] VITALS: BP 168/74
--- NOTE | 2021-08-10 08:15 | NUR ---
Recheck patient's vs BP 168/74 AND P:66 Patient denies of any pain at this time. Kept head of bed at 45 degrees. Patient on oxygen via nasal cannula at 2lpm saturating at 97%
[2021-08-10 08:35] VITALS: BP 168/70
[2021-08-10] MEDS: BUDESONIDE 0.5 MG/2 ML NEBU IH SCH ×2 (08:35→20:25)
[2021-08-10] MEDS: INSULIN REGULAR, HUMAN 300 UNIT/3 ML VIAL SQ PRN ×4 (08:35→20:30)
[2021-08-10] MEDS: INSULIN GLARGINE,HUM 300 UNITS/3 ML CARTRIDGE SQ SCH (08:39)
[2021-08-10] MEDS: ISOSORBIDE MONONITRATE 60 MG TAB.SR.24H PO SCH (08:41)
[2021-08-10] MEDS: BUMETANIDE 1 MG TABLET PO SCH ×2 (08:41→20:39)
[2021-08-10] MEDS: CARVEDILOL 6.25 MG TABLET PO SCH ×2 (08:41→16:51)
[2021-08-10] MEDS: NIFEdipine XL 30 MG TABSR PO SCH ×2 (08:42→20:29)
[2021-08-10] MEDS: hydrALAZINE HCL 50 MG TABLET PO SCH ×2 (08:42→20:29)
[2021-08-10] MEDS: PANTOPRAZOLE SODIUM 40 MG TABLET.DR PO SCH (08:42)
[2021-08-10] MEDS: LINAGLIPTIN 5 MG TABLET PO SCH (08:42)
[2021-08-10] MEDS: predniSONE 20 MG TABLET PO SCH (08:42)
[2021-08-10] MEDS: Z GUARD REMEDY PASTE 57 GM TUBE TP SCH ×2 (08:43→16:55)
[2021-08-10] MEDS: NYSTATIN CREAM 30 GM TUBE TP SCH ×2 (08:43→16:55)
[2021-08-10] MEDS: DOXAZOSIN 2 MG TABLET PO SCH ×2 (09:02→16:50)
--- NOTE | 2021-08-10 11:00 | NUR ---
Patient is alert and oriented x 4, pleasant and cooperative upon assessment, all due meds given per MD order. Patient on oxygen via nasal cannula at 2LPM saturating at 97% Titrate oxygen to 1 LPM and monitor patient. Patient is saturating at 95% and denies of any SOB. Seen by Dr. Mchugh. All needs met promptly, Placed call light within reach.
--- NOTE | 2021-08-10 13:53 | NUR ---
INTERDISCIPLINARY TEAM CONFERENCE
[2021-08-10 16:00] VITALS: BP 166/68
[2021-08-10 20:05] VITALS: BP 150/62
[2021-08-10] MEDS: MONTELUKAST SODIUM 10 MG TABLET PO SCH (20:28)
[2021-08-10] MEDS: ATORVASTATIN 20 MG TABLET PO SCH (20:28)
[2021-08-11] MEDS: ALBUTEROL SULFATE 2.5 MG/ 0.5 ML NEBU IH SCH ×4 (01:30→19:10)
[2021-08-11 04:15] VITALS: BP 160/59
[2021-08-11] MEDS: BLOOD SUGAR DIAGNOSTIC 1 EACH STRIP VI SCH ×4 (05:50→20:26)
--- NOTE | 2021-08-11 06:16 | NUR ---
Slept good. Pulse oximeter alarming intermittently. Close monitoring rendered. Tolerating Oxygen and breathing treatment well. No significant event reported all night. No s/s of hypo/hyperglycemia. No respiratory distress.
[2021-08-11 07:29] VITALS: BP 159/63
[2021-08-11] MEDS: predniSONE 20 MG TABLET PO SCH (08:50)
[2021-08-11] MEDS: ISOSORBIDE MONONITRATE 60 MG TAB.SR.24H PO SCH (08:50)
[2021-08-11] MEDS: PANTOPRAZOLE SODIUM 40 MG TABLET.DR PO SCH (08:50)
[2021-08-11] MEDS: LINAGLIPTIN 5 MG TABLET PO SCH (08:50)
[2021-08-11] MEDS: hydrALAZINE HCL 50 MG TABLET PO SCH ×2 (08:51→20:23)
[2021-08-11] MEDS: BUMETANIDE 1 MG TABLET PO SCH ×2 (08:51→16:00)
[2021-08-11] MEDS: NIFEdipine XL 30 MG TABSR PO SCH ×2 (08:52→20:23)
[2021-08-11] MEDS: DOXAZOSIN 2 MG TABLET PO SCH ×2 (08:52→16:00)
[2021-08-11] MEDS: INSULIN GLARGINE,HUM 300 UNITS/3 ML CARTRIDGE SQ SCH (08:55)
[2021-08-11] MEDS: INSULIN REGULAR, HUMAN 300 UNIT/3 ML VIAL SQ PRN ×4 (08:58→20:27)
[2021-08-11] MEDS: NYSTATIN CREAM 30 GM TUBE TP SCH ×2 (08:59→16:00)
[2021-08-11] MEDS: Z GUARD REMEDY PASTE 57 GM TUBE TP SCH ×2 (08:59→16:01)
[2021-08-11] MEDS: CARVEDILOL 6.25 MG TABLET PO SCH ×2 (09:00→16:00)
[2021-08-11] MEDS: BUDESONIDE 0.5 MG/2 ML NEBU IH SCH ×2 (09:09→19:10)
[2021-08-11 15:50] VITALS: BP 158/73
[2021-08-11 20:20] VITALS: BP 166/68
[2021-08-11] MEDS: MONTELUKAST SODIUM 10 MG TABLET PO SCH (20:22)
[2021-08-11] MEDS: ATORVASTATIN 20 MG TABLET PO SCH (20:22)
[2021-08-12] MEDS: ALBUTEROL SULFATE 2.5 MG/ 0.5 ML NEBU IH SCH ×4 (00:31→21:19)
[2021-08-12 04:00] VITALS: BP 190/78
[2021-08-12] MEDS: hydrALAZINE HCL 25 MG TABLET PO PRN (04:09)
[2021-08-12] MEDS: BLOOD SUGAR DIAGNOSTIC 1 EACH STRIP VI SCH ×4 (05:20→20:36)
--- NOTE | 2021-08-12 05:24 | NUR ---
BAT915/78. Denies any s/s of hypertension. Apresoline 25mg 1 tab oral given as needed and ordered. Will monitor.
[2021-08-12 06:16] LABS: HEMATOCRIT 27.9 % (31.2-41.9); MEAN CORPUSCULAR HEMOGLOBIN 31.5 uug (24.7-32.8); MEAN CORPUSCULAR VOLUME 95.5 fL (75.5-95.3); PLATELET COUNT (AUTO) 93 K/uL (179-408)
[2021-08-12 06:36] LABS: CARBON DIOXIDE 34 mmol/L (21-32); CHLORIDE 108 mmol/L (98-107); GLUCOSE 111 mg/dL (74-106); PHOSPHOROUS 4.2 mg/dL (2.5-4.9); POTASSIUM 3.9 mmol/L (3.5-5.1); UREA NITROGEN, BLOOD 59 mg/dL (7-18)
[2021-08-12 07:37] VITALS: BP 166/21
[2021-08-12] MEDS: BUDESONIDE 0.5 MG/2 ML NEBU IH SCH ×2 (08:38→21:19)
[2021-08-12] MEDS: BUMETANIDE 1 MG TABLET PO SCH (09:31)
[2021-08-12] MEDS: LINAGLIPTIN 5 MG TABLET PO SCH (09:31)
[2021-08-12] MEDS: NIFEdipine XL 30 MG TABSR PO SCH ×2 (09:32→20:31)
[2021-08-12] MEDS: CARVEDILOL 6.25 MG TABLET PO SCH ×2 (09:32→16:06)
[2021-08-12] MEDS: hydrALAZINE HCL 50 MG TABLET PO SCH ×2 (09:32→20:32)
[2021-08-12] MEDS: ISOSORBIDE MONONITRATE 60 MG TAB.SR.24H PO SCH (09:32)
[2021-08-12] MEDS: PANTOPRAZOLE SODIUM 40 MG TABLET.DR PO SCH (09:33)
[2021-08-12] MEDS: predniSONE 10 MG TABLET PO SCH (09:33)
[2021-08-12] MEDS: DOXAZOSIN 2 MG TABLET PO SCH ×2 (09:33→16:07)
[2021-08-12] MEDS: NYSTATIN CREAM 30 GM TUBE TP SCH ×2 (09:34→16:14)
[2021-08-12] MEDS: Z GUARD REMEDY PASTE 57 GM TUBE TP SCH ×2 (09:34→16:14)
[2021-08-12] MEDS: INSULIN GLARGINE,HUM 300 UNITS/3 ML CARTRIDGE SQ SCH (09:37)
[2021-08-12 10:02] VITALS: BP 168/67
[2021-08-12] MEDS: EPOETIN ALFA-EPBX 10,000 UNIT/ML VIAL SQ SCH (10:37)
--- NOTE | 2021-08-12 11:21 | NUR ---
Received patient in bed, alert and oriented x 4, pleasant and cooperative upon assessment, no s/s of distress. Patient on oxygen via nasal cannula at 1lpm saturating at 95-96%. Seen by Dr. Mchugh. All due meds given per MD ordered. All needs met in a timely manner.
[2021-08-12 15:58] VITALS: BP 172/71
[2021-08-12] MEDS: INSULIN REGULAR, HUMAN 300 UNIT/3 ML VIAL SQ PRN ×2 (17:23→20:40)
[2021-08-12 20:07] VITALS: BP 163/60
[2021-08-12] MEDS: MONTELUKAST SODIUM 10 MG TABLET PO SCH (20:30)
[2021-08-12] MEDS: ATORVASTATIN 20 MG TABLET PO SCH (20:32)
--- NOTE | 2021-08-12 21:21 | NUR ---
AAOx4 Admitted for respiratory failure. On 1 L O2 via nasal cannula, pulse ox 95%. Denies any pain nor any discomfort. All needs attended. BP 163/60 HR 70 Resp 19 Temp 98.3 On continous pulse ox . Continent of bowel and bladder but wears diaper at night. Kept clean and dry. Tolerated po meds well. All due meds given. Will monitor patient. Right arm PICC line intact flushed and patent. Accucheck 179 with coverage given. No distress noted.
[2021-08-13] MEDS: ALBUTEROL SULFATE 2.5 MG/ 0.5 ML NEBU IH SCH ×4 (01:30→20:43)
[2021-08-13 04:33] VITALS: BP 184/66
[2021-08-13] MEDS: hydrALAZINE HCL 25 MG TABLET PO PRN (05:46)
--- NOTE | 2021-08-13 06:00 | NUR ---
BP 184/66 HR 61 Hydralazine 25 mg po given as ordered. Patient asymptomatic. Will recheck BP again. Needs attended. Will monitor patient.
[2021-08-13] MEDS: BLOOD SUGAR DIAGNOSTIC 1 EACH STRIP VI SCH ×4 (06:31→21:20)
[2021-08-13 07:37] VITALS: BP 167/64
[2021-08-13] MEDS: BUDESONIDE 0.5 MG/2 ML NEBU IH SCH ×2 (07:42→20:43)
[2021-08-13] MEDS: NIFEdipine XL 30 MG TABSR PO SCH ×2 (08:33→21:15)
[2021-08-13] MEDS: BUMETANIDE 1 MG TABLET PO SCH (08:33)
[2021-08-13] MEDS: CARVEDILOL 6.25 MG TABLET PO SCH ×2 (08:34→17:42)
[2021-08-13] MEDS: DOXAZOSIN 2 MG TABLET PO SCH ×2 (08:34→17:43)
[2021-08-13] MEDS: PANTOPRAZOLE SODIUM 40 MG TABLET.DR PO SCH (08:34)
[2021-08-13] MEDS: ISOSORBIDE MONONITRATE 60 MG TAB.SR.24H PO SCH (08:34)
[2021-08-13] MEDS: LINAGLIPTIN 5 MG TABLET PO SCH (08:34)
[2021-08-13] MEDS: hydrALAZINE HCL 50 MG TABLET PO SCH ×2 (08:35→21:14)
[2021-08-13] MEDS: predniSONE 10 MG TABLET PO SCH (08:35)
[2021-08-13] MEDS: NYSTATIN CREAM 30 GM TUBE TP SCH ×2 (08:36→17:43)
[2021-08-13] MEDS: Z GUARD REMEDY PASTE 57 GM TUBE TP SCH ×2 (08:36→17:44)
[2021-08-13] MEDS: INSULIN GLARGINE,HUM 300 UNITS/3 ML CARTRIDGE SQ SCH (09:00)
[2021-08-13] MEDS: INSULIN REGULAR, HUMAN 300 UNIT/3 ML VIAL SQ PRN ×3 (11:33→21:24)
[2021-08-13 15:32] VITALS: BP 104/59
[2021-08-13 18:52] VITALS: BP 150/64
[2021-08-13 20:44] VITALS: BP 110/59
[2021-08-13] MEDS: ATORVASTATIN 20 MG TABLET PO SCH (21:14)
[2021-08-13] MEDS: MONTELUKAST SODIUM 10 MG TABLET PO SCH (21:15)
--- NOTE | 2021-08-13 23:02 | NUR ---
Awake upon rounds watching TV. AAOx4 Needs attended. Kept comfortable. All due meds given as ordered. Denies any pain nor any discomfort. Right PICC line intact flushed and patent. Accucheck 205 with coverage given. Will monitor patient. Incontinent of urinex2. Kept clean and dry All needs attended and met. Will monitor patient.VSS.
[2021-08-14 04:15] VITALS: BP 158/61
[2021-08-14] MEDS: BLOOD SUGAR DIAGNOSTIC 1 EACH STRIP VI SCH ×4 (07:17→20:16)
[2021-08-14] MEDS: ALBUTEROL SULFATE 2.5 MG/ 0.5 ML NEBU IH SCH ×3 (07:34→20:23)
[2021-08-14] MEDS: BUDESONIDE 0.5 MG/2 ML NEBU IH SCH ×2 (07:35→20:22)
[2021-08-14 08:00] VITALS: BP 166/69
[2021-08-14] MEDS: hydrALAZINE HCL 50 MG TABLET PO SCH (09:33)
[2021-08-14] MEDS: LINAGLIPTIN 5 MG TABLET PO SCH (09:33)
[2021-08-14] MEDS: ISOSORBIDE MONONITRATE 60 MG TAB.SR.24H PO SCH (09:34)
[2021-08-14] MEDS: CARVEDILOL 6.25 MG TABLET PO SCH ×2 (09:34→17:49)
[2021-08-14] MEDS: Z GUARD REMEDY PASTE 57 GM TUBE TP SCH ×2 (09:35→17:49)
[2021-08-14] MEDS: PANTOPRAZOLE SODIUM 40 MG TABLET.DR PO SCH (09:35)
[2021-08-14] MEDS: BUMETANIDE 1 MG TABLET PO SCH (09:35)
[2021-08-14] MEDS: NIFEdipine XL 30 MG TABSR PO SCH (09:35)
[2021-08-14] MEDS: DOXAZOSIN 2 MG TABLET PO SCH ×2 (09:36→17:49)
[2021-08-14] MEDS: NYSTATIN CREAM 30 GM TUBE TP SCH ×2 (09:36→17:49)
[2021-08-14] MEDS: INSULIN GLARGINE,HUM 300 UNITS/3 ML CARTRIDGE SQ SCH (09:38)
[2021-08-14 16:40] VITALS: BP 158/56
[2021-08-14] MEDS: ATORVASTATIN 20 MG TABLET PO SCH (20:16)
[2021-08-14] MEDS: MONTELUKAST SODIUM 10 MG TABLET PO SCH (20:16)
[2021-08-14] MEDS: INSULIN REGULAR, HUMAN 300 UNIT/3 ML VIAL SQ PRN (20:18)
[2021-08-14 20:45] VITALS: BP 159/59
--- NOTE | 2021-08-14 22:30 | NUR ---
Received pt resting in bed and watching tv. AAO x4. On 1L O2 via NC, no acute distress noted. Denies pain/ discomfort. Due meds given as ordered. Blood sugar 141, insulin coverage given as per sliding scale. Turned and repositioned. Both heels offloaded. Safety measures maintained. Call light and personal items within reach. Will continue to monitor.
[2021-08-15] MEDS: ALBUTEROL SULFATE 2.5 MG/ 0.5 ML NEBU IH SCH ×4 (01:30→19:20)
[2021-08-15] MEDS: hydrALAZINE HCL 25 MG TABLET PO PRN (04:48)
[2021-08-15 04:54] VITALS: BP 185/66
--- NOTE | 2021-08-15 05:58 | NUR ---
BP elevated 185/66 this morning. Pt denies CP, SOB, or dizziness. Hydralazine PRN given. Continue to monitor.
[2021-08-15] MEDS: BLOOD SUGAR DIAGNOSTIC 1 EACH STRIP VI SCH ×4 (06:41→20:08)
[2021-08-15] MEDS: BUDESONIDE 0.5 MG/2 ML NEBU IH SCH ×2 (07:07→19:20)
[2021-08-15 07:40] VITALS: BP 169/73
[2021-08-15] MEDS ORDERED: NIFEdipine XL 30 MG TABSR PO SCH (09:00)
[2021-08-15] MEDS: BUMETANIDE 1 MG TABLET PO SCH (09:45)
[2021-08-15] MEDS: PANTOPRAZOLE SODIUM 40 MG TABLET.DR PO SCH (09:45)
[2021-08-15] MEDS: CARVEDILOL 6.25 MG TABLET PO SCH ×2 (09:45→17:27)
[2021-08-15] MEDS: DOXAZOSIN 2 MG TABLET PO SCH ×2 (09:45→17:27)
[2021-08-15] MEDS: NIFEdipine XL 90 MG TABSR PO SCH (09:45)
[2021-08-15] MEDS: LINAGLIPTIN 5 MG TABLET PO SCH (09:45)
[2021-08-15] MEDS: ISOSORBIDE MONONITRATE 60 MG TAB.SR.24H PO SCH (09:46)
[2021-08-15] MEDS: INSULIN GLARGINE,HUM 300 UNITS/3 ML CARTRIDGE SQ SCH (09:48)
[2021-08-15] MEDS: Z GUARD REMEDY PASTE 57 GM TUBE TP SCH ×2 (09:49→17:29)
[2021-08-15] MEDS: NYSTATIN CREAM 30 GM TUBE TP SCH ×2 (09:49→17:28)
[2021-08-15 20:07] VITALS: BP 129/42
[2021-08-15] MEDS: MONTELUKAST SODIUM 10 MG TABLET PO SCH (20:08)
[2021-08-15] MEDS: ATORVASTATIN 20 MG TABLET PO SCH (20:08)
[2021-08-15] MEDS: INSULIN REGULAR, HUMAN 300 UNIT/3 ML VIAL SQ PRN (20:26)
--- NOTE | 2021-08-15 21:31 | NUR ---
Received pt resting in bed and watching tv. AAO x4. On 1L O2 via NC, no acute distress noted. Denies pain/ discomfort. Due meds given as ordered. Blood sugar 140, insulin coverage given per sliding scale. Safety measures maintained. Call light and personal items within reach. Will continue to monitor.
[2021-08-16] MEDS: ALBUTEROL SULFATE 2.5 MG/ 0.5 ML NEBU IH SCH ×4 (00:45→19:19)
[2021-08-16 04:18] VITALS: BP 167/67
[2021-08-16] MEDS: hydrALAZINE HCL 25 MG TABLET PO PRN (04:34)
[2021-08-16] MEDS: BLOOD SUGAR DIAGNOSTIC 1 EACH STRIP VI SCH ×4 (06:40→20:53)
[2021-08-16 07:42] VITALS: BP 164/65
[2021-08-16] MEDS: BUDESONIDE 0.5 MG/2 ML NEBU IH SCH ×2 (08:25→19:19)
[2021-08-16] MEDS: NIFEdipine XL 90 MG TABSR PO SCH (09:24)
[2021-08-16] MEDS: PANTOPRAZOLE SODIUM 40 MG TABLET.DR PO SCH (09:24)
[2021-08-16] MEDS: CARVEDILOL 6.25 MG TABLET PO SCH (09:24)
[2021-08-16] MEDS: LINAGLIPTIN 5 MG TABLET PO SCH (09:24)
[2021-08-16] MEDS: DOXAZOSIN 2 MG TABLET PO SCH ×2 (09:24→18:01)
[2021-08-16] MEDS: ISOSORBIDE MONONITRATE 60 MG TAB.SR.24H PO SCH (09:24)
[2021-08-16] MEDS: BUMETANIDE 1 MG TABLET PO SCH ×2 (09:24→18:01)
[2021-08-16] MEDS: NYSTATIN CREAM 30 GM TUBE TP SCH ×2 (09:26→18:02)
[2021-08-16] MEDS: Z GUARD REMEDY PASTE 57 GM TUBE TP SCH ×2 (09:26→18:02)
[2021-08-16] MEDS: INSULIN GLARGINE,HUM 300 UNITS/3 ML CARTRIDGE SQ SCH (09:29)
[2021-08-16 14:58] VITALS: BP 128/54
[2021-08-16] MEDS ORDERED: CARVEDILOL 6.25 MG TABLET PO SCH (17:00)
[2021-08-16] MEDS: CARVEDILOL 12.5 MG TABLET PO SCH (18:02)
--- NOTE | 2021-08-16 18:18 | NUR ---
SHE HAS REQUESTED TO HAVE LEXAPRO REOMOVED FORM HER MEDICATIONS. SHE SAYS SHE IS NOT DEPRESSED AND SHE DOES NOT LIKE THE WAY THE MED MAKES HER FEEL. NOTIFIED
[2021-08-16] MEDS: ATORVASTATIN 20 MG TABLET PO SCH (20:49)
[2021-08-16] MEDS: MONTELUKAST SODIUM 10 MG TABLET PO SCH (20:49)
[2021-08-16] MEDS: INSULIN REGULAR, HUMAN 300 UNIT/3 ML VIAL SQ PRN (20:57)
[2021-08-16 21:25] VITALS: BP 128/50
[2021-08-17] MEDS: ALBUTEROL SULFATE 2.5 MG/ 0.5 ML NEBU IH SCH ×4 (00:32→20:02)
--- NOTE | 2021-08-17 01:03 | NUR ---
AAOx4 Watching TV upon initial rounds. In good spirits. VSS Incontinent of bowel and bladder. No BM noted this shift. All due meds given without difficulty. On 1L O2 via nasal cannula, pulse ox 98% . Right upper arm PICC intact. Denies any pain nor any discomfort. Accucheck 174. All needs attended. Will monitor patient.
[2021-08-17 04:00] VITALS: BP 154/66
[2021-08-17] MEDS: BLOOD SUGAR DIAGNOSTIC 1 EACH STRIP VI SCH ×4 (06:32→20:46)
[2021-08-17 08:07] VITALS: BP 170/65
[2021-08-17] MEDS: BUDESONIDE 0.5 MG/2 ML NEBU IH SCH ×2 (08:18→20:02)
[2021-08-17] MEDS: ISOSORBIDE MONONITRATE 60 MG TAB.SR.24H PO SCH (08:21)
[2021-08-17] MEDS: PANTOPRAZOLE SODIUM 40 MG TABLET.DR PO SCH (08:21)
[2021-08-17] MEDS: LINAGLIPTIN 5 MG TABLET PO SCH (08:21)
[2021-08-17] MEDS: BUMETANIDE 1 MG TABLET PO SCH ×2 (08:23→17:28)
[2021-08-17] MEDS: CARVEDILOL 12.5 MG TABLET PO SCH ×2 (08:24→17:28)
[2021-08-17] MEDS: INSULIN GLARGINE,HUM 300 UNITS/3 ML CARTRIDGE SQ SCH (08:25)
[2021-08-17] MEDS: Z GUARD REMEDY PASTE 57 GM TUBE TP SCH ×2 (08:38→17:30)
[2021-08-17] MEDS: NYSTATIN CREAM 30 GM TUBE TP SCH ×2 (08:38→17:30)
[2021-08-17] MEDS: DOXAZOSIN 2 MG TABLET PO SCH ×2 (09:50→17:29)
[2021-08-17] MEDS: NIFEdipine XL 90 MG TABSR PO SCH (09:51)
--- NOTE | 2021-08-17 14:10 | NUR ---
INTERDISCIPLINARY TEAM CONFERENCE
[2021-08-17 15:36] VITALS: BP 139/49
[2021-08-17 19:51] VITALS: BP 155/63
[2021-08-17] MEDS: MONTELUKAST SODIUM 10 MG TABLET PO SCH (20:43)
[2021-08-17] MEDS: ATORVASTATIN 20 MG TABLET PO SCH (20:44)
[2021-08-17] MEDS: INSULIN REGULAR, HUMAN 300 UNIT/3 ML VIAL SQ PRN (20:49)
[2021-08-18] MEDS: ALBUTEROL SULFATE 2.5 MG/ 0.5 ML NEBU IH SCH ×5 (01:18→19:18)
[2021-08-18 04:20] VITALS: BP 161/62
[2021-08-18] MEDS: BLOOD SUGAR DIAGNOSTIC 1 EACH STRIP VI SCH ×4 (05:53→20:42)
--- NOTE | 2021-08-18 06:08 | NUR ---
Slept good with continuos pulse oximeter monitoring saturating 92-95% with O2 1L/min. No s/s of respiratory distress noted.No s/s of hypo/hyperglycemia. No s/s of hypo/hypertension. All needs attended and met. Continue care as planned.
[2021-08-18] MEDS: BUDESONIDE 0.5 MG/2 ML NEBU IH SCH ×2 (07:05→19:18)
[2021-08-18 08:00] VITALS: BP 102/57
[2021-08-18] MEDS: CARVEDILOL 12.5 MG TABLET PO SCH ×2 (08:28→17:01)
[2021-08-18] MEDS: NIFEdipine XL 90 MG TABSR PO SCH (08:28)
[2021-08-18] MEDS: BUMETANIDE 1 MG TABLET PO SCH ×2 (08:28→16:37)
[2021-08-18] MEDS: DOXAZOSIN 2 MG TABLET PO SCH ×2 (08:29→16:39)
[2021-08-18] MEDS: LINAGLIPTIN 5 MG TABLET PO SCH (08:29)
[2021-08-18] MEDS: ISOSORBIDE MONONITRATE 60 MG TAB.SR.24H PO SCH (08:29)
[2021-08-18] MEDS: PANTOPRAZOLE SODIUM 40 MG TABLET.DR PO SCH (08:29)
[2021-08-18] MEDS: Z GUARD REMEDY PASTE 57 GM TUBE TP SCH ×2 (08:30→16:39)
[2021-08-18] MEDS: NYSTATIN CREAM 30 GM TUBE TP SCH ×2 (08:30→16:39)
[2021-08-18] MEDS: INSULIN GLARGINE,HUM 300 UNITS/3 ML CARTRIDGE SQ SCH (08:34)
[2021-08-18] MEDS: INSULIN REGULAR, HUMAN 300 UNIT/3 ML VIAL SQ PRN ×2 (11:47→20:45)
[2021-08-18 16:00] VITALS: BP 128/50
--- NOTE | 2021-08-18 19:13 | NUR ---
no events noted during shift
[2021-08-18 20:16] VITALS: BP 134/55
[2021-08-18] MEDS: ATORVASTATIN 20 MG TABLET PO SCH (20:36)
[2021-08-18] MEDS: MONTELUKAST SODIUM 10 MG TABLET PO SCH (20:36)
[2021-08-18] MEDS: BUMETANIDE 1 MG/4 ML VIAL IV SCH (20:40)
[2021-08-19] MEDS: ALBUTEROL SULFATE 2.5 MG/ 0.5 ML NEBU IH SCH ×4 (01:27→19:10)
[2021-08-19 04:00] VITALS: BP 164/65
[2021-08-19] MEDS: BLOOD SUGAR DIAGNOSTIC 1 EACH STRIP VI SCH ×4 (06:01→20:42)
[2021-08-19 07:06] LABS: HEMATOCRIT 28.1 % (31.2-41.9); MEAN CORPUSCULAR HEMOGLOBIN 31.2 uug (24.7-32.8); MEAN CORPUSCULAR VOLUME 95.4 fL (75.5-95.3); PLATELET COUNT (AUTO) 132 K/uL (179-408)
[2021-08-19 07:22] LABS: CARBON DIOXIDE 31 mmol/L (21-32); CHLORIDE 105 mmol/L (98-107); CREATININE 2.3 mg/dL (0.6-1.3); GLUCOSE 98 mg/dL (74-106); MAGNESIUM 1.8 mg/dL (1.8-2.4); PHOSPHOROUS 3.8 mg/dL (2.5-4.9); POTASSIUM 3.8 mmol/L (3.5-5.1); UREA NITROGEN, BLOOD 47 mg/dL (7-18)
[2021-08-19] MEDS: BUDESONIDE 0.5 MG/2 ML NEBU IH SCH ×2 (07:45→19:10)
[2021-08-19 08:00] VITALS: BP 148/54
[2021-08-19 08:03] LABS: ABG HCO3 29.8 mmol/L; ABG PCO2 45.3 mmHg (35.0-45.0); ABG PH 7.436 (7.350-7.450); ABG PO2 65.7 mmHg (75.0-100.0); ABG SITE RIGHT RADIAL; ABG TOTAL HEMOGLOBIN 10.3 G/dL (12.0-16.0); COHb 1.5 % (0.5-1.5); MetHb 0.2 % (0.0-1.5); O2Hb 91.7 % (94.0-97.0); VENT MODE Nasal Cannula
[2021-08-19] MEDS: LINAGLIPTIN 5 MG TABLET PO SCH (08:57)
[2021-08-19] MEDS: PANTOPRAZOLE SODIUM 40 MG TABLET.DR PO SCH (09:02)
[2021-08-19] MEDS: BUMETANIDE 1 MG/4 ML VIAL IV SCH (09:08)
[2021-08-19] MEDS: CARVEDILOL 12.5 MG TABLET PO SCH ×2 (09:12→17:00)
[2021-08-19] MEDS: ISOSORBIDE MONONITRATE 60 MG TAB.SR.24H PO SCH (09:12)
[2021-08-19] MEDS: INSULIN GLARGINE,HUM 300 UNITS/3 ML CARTRIDGE SQ SCH (09:14)
[2021-08-19] MEDS: NYSTATIN CREAM 30 GM TUBE TP SCH ×2 (09:29→17:01)
[2021-08-19] MEDS: Z GUARD REMEDY PASTE 57 GM TUBE TP SCH ×2 (09:29→17:01)
[2021-08-19] MEDS: NIFEdipine XL 60 MG TABSR PO SCH (10:00)
[2021-08-19] MEDS: DOXAZOSIN 2 MG TABLET PO SCH ×2 (10:00→17:00)
[2021-08-19] MEDS: INSULIN REGULAR, HUMAN 300 UNIT/3 ML VIAL SQ PRN ×2 (11:52→20:46)
[2021-08-19] MEDS: EPOETIN ALFA-EPBX 10,000 UNIT/ML VIAL SQ SCH (11:52)
[2021-08-19 12:00] VITALS: BP 128/45
[2021-08-19 13:05] LABS: LYMPHOCYTES % (MANUAL) 10 % (20-40); MONOCYTES % (MANUAL) 14 % (2-10); NEUTROPHILS % (MANUAL) 76 % (42-75)
[2021-08-19 16:00] VITALS: BP 144/50
--- NOTE | 2021-08-19 16:00 | NUR ---
Patient remains alert, oriented x 4, not in any form of distress, on 1LPM via NC. She denies any pain or discomfort. Assisted with her needs promptly. Call light and frequently used items placed within patient's reach.
[2021-08-19 20:28] VITALS: BP 152/61
[2021-08-19] MEDS: ATORVASTATIN 20 MG TABLET PO SCH (20:42)
[2021-08-19] MEDS: MONTELUKAST SODIUM 10 MG TABLET PO SCH (20:42)
--- NOTE | 2021-08-19 22:53 | NUR ---
Received pt resting in bed and knitting. AAO x4. On 1L O2 via NC, no acute distress noted. Denies pain/ discomfort. KEN PICC line, patent and intact. Due meds given as ordered. Blood sugar 144, insulin coverage given as per sliding scale. Safety measures maintained. Call light and personal items within reach. Will continue to monitor.
[2021-08-20] MEDS: ALBUTEROL SULFATE 2.5 MG/ 0.5 ML NEBU IH SCH ×4 (01:22→19:20)
[2021-08-20 04:17] VITALS: BP 174/65
[2021-08-20] MEDS: hydrALAZINE HCL 25 MG TABLET PO PRN (04:20)
--- NOTE | 2021-08-20 06:33 | NUR ---
Pt's BP at 0400 was 174/65. Denies CP, SOB, or dizziness. No acute distress noted. Denies pain/ discomfort. Hydralazine PRN given. Pt slept comfortably t/o the night. Will endorse accordingly.
[2021-08-20] MEDS: BLOOD SUGAR DIAGNOSTIC 1 EACH STRIP VI SCH ×4 (06:45→20:14)
[2021-08-20] MEDS: NIFEdipine XL 60 MG TABSR PO SCH (08:13)
[2021-08-20] MEDS: DOXAZOSIN 2 MG TABLET PO SCH ×2 (08:13→17:17)
[2021-08-20] MEDS: PANTOPRAZOLE SODIUM 40 MG TABLET.DR PO SCH (08:13)
[2021-08-20] MEDS: ISOSORBIDE MONONITRATE 60 MG TAB.SR.24H PO SCH (08:13)
[2021-08-20] MEDS: CARVEDILOL 12.5 MG TABLET PO SCH ×2 (08:14→17:49)
[2021-08-20] MEDS: LINAGLIPTIN 5 MG TABLET PO SCH (08:14)
[2021-08-20] MEDS: BUMETANIDE 1 MG/4 ML VIAL IV SCH (08:23)
[2021-08-20 08:27] VITALS: BP 166/61
[2021-08-20] MEDS: INSULIN GLARGINE,HUM 300 UNITS/3 ML CARTRIDGE SQ SCH (08:27)
[2021-08-20] MEDS: BUDESONIDE 0.5 MG/2 ML NEBU IH SCH ×2 (08:32→19:20)
[2021-08-20] MEDS: NYSTATIN CREAM 30 GM TUBE TP SCH ×2 (08:38→17:17)
[2021-08-20] MEDS: Z GUARD REMEDY PASTE 57 GM TUBE TP SCH ×2 (08:38→17:17)
--- NOTE | 2021-08-20 09:44 | NUR ---
Received patient in bed, alert and oriented x 4, denies of any pain , pleasant and cooeprative upon assessment. Patient in room air for 40 mins and monitor her saturation. Patient is saturating at 85-87% and denies of any shortness of breath. RT made aware. All due meds given per MD order. Put back the oxygen via nasal cannula at 2LPM . Patient asleep and saturating at 88-90%. When patient woke up and asked if she is having trouble breathing patient stated " I FEEL FINE" then patient went back to sleep. Will continue to monitor for patient's safety. Placed call light within reach.
[2021-08-20 11:45] VITALS: BP 150/57
--- NOTE | 2021-08-20 12:00 | NUR ---
Patient in bed, patient in oxygen via nasal cannula at 2LPM saturating at 90-92% Patient denies of any sob.
[2021-08-20] MEDS: INSULIN REGULAR, HUMAN 300 UNIT/3 ML VIAL SQ PRN (12:21)
[2021-08-20 16:03] VITALS: BP 150/46
--- NOTE | 2021-08-20 17:22 | NUR ---
Patient refused accucheck. When tried to explained to her the importance of knowing her blood sugar level is, patient stated " I am tired of it and I am not a pin cushion" When I told her that I am going to be gentle she still refused. Will endorse to the next shift
--- NOTE | 2021-08-20 17:33 | NUR ---
Riley Grady FIRE CHIEF'S AIDE made aware of her refusing accucheck.
[2021-08-20 20:09] VITALS: BP 150/59
[2021-08-20] MEDS: MONTELUKAST SODIUM 10 MG TABLET PO SCH (20:09)
[2021-08-20] MEDS: ATORVASTATIN 20 MG TABLET PO SCH (20:09)
--- NOTE | 2021-08-20 21:36 | NUR ---
Received pt awake on bed, on O2 at 2lpm saturating at 97%. No respiratory distress noted. She is alert and oriented x4, able to make needs known. KEN PICC line patent and intact. Due medications given on time and tolerated well. Accucheck done, BS 147. Pt refused insulin, risks and benefits explained. Pt still refused and doesn't want to be poked again. Denies pain and discomfort at this time. All needs attended. Call light placed within reach. Will continue to monitor.
[2021-08-21] MEDS: ALBUTEROL SULFATE 2.5 MG/ 0.5 ML NEBU IH SCH ×3 (00:30→13:51)
[2021-08-21 04:12] VITALS: BP 150/62
[2021-08-21] MEDS: BLOOD SUGAR DIAGNOSTIC 1 EACH STRIP VI SCH ×2 (06:53→11:30)
--- NOTE | 2021-08-21 06:54 | NUR ---
Pt slept throughout the night. Easily arousable for care, able to make needs known. Denies pain and discomfort at this time. Accucheck done, BS 124. All needs attended. Call light placed within reach. Frequent visual checks done. Will endorse to next shift for continuity of care.
[2021-08-21 07:30] VITALS: BP 156/58
[2021-08-21] MEDS: BUDESONIDE 0.5 MG/2 ML NEBU IH SCH (08:40)
[2021-08-21] MEDS ORDERED: BUMETANIDE 1 MG TABLET PO SCH (09:30)
[2021-08-21] MEDS: LINAGLIPTIN 5 MG TABLET PO SCH (09:47)
[2021-08-21] MEDS: NIFEdipine XL 60 MG TABSR PO SCH (09:47)
[2021-08-21] MEDS: CARVEDILOL 12.5 MG TABLET PO SCH (09:47)
[2021-08-21] MEDS: PANTOPRAZOLE SODIUM 40 MG TABLET.DR PO SCH (09:47)
[2021-08-21 09:48] VITALS: BP 156/58
[2021-08-21] MEDS: ISOSORBIDE MONONITRATE 60 MG TAB.SR.24H PO SCH (09:48)
[2021-08-21] MEDS: DOXAZOSIN 2 MG TABLET PO SCH (09:48)
[2021-08-21] MEDS: Z GUARD REMEDY PASTE 57 GM TUBE TP SCH (09:52)
[2021-08-21] MEDS: NYSTATIN CREAM 30 GM TUBE TP SCH (09:52)
[2021-08-21] MEDS: INSULIN GLARGINE,HUM 300 UNITS/3 ML CARTRIDGE SQ SCH (09:54)
--- NOTE | 2021-08-21 15:00 | NUR ---
picked up by private ambulance arranged by daughter. in no acute distress sat 92% on 5l o2. instructions explained to daughter verbalized understanding
== END 2021-08-21 15:10 | disposition home health service (06) | DRG 189 ==
PROVIDERS: ADMIT Physical Medicine & Rehabilitation Pain Medicine; ATTEND Physical Medicine & Rehabilitation Pain Medicine
DX: J96.01 Acute respiratory failure with hypoxia (principal); M30.0 Polyarteritis nodosa; G72.0 Drug-induced myopathy; I13.0 Hypertensive heart and chronic kidney disease with heart failure and stage 1 through stage 4 chronic kidney disease, or unspecified chronic kidney disease; Z68.42 Body mass index [BMI] 45.0-49.9, adult; E46 Unspecified protein-calorie malnutrition; I82.621 Acute embolism and thrombosis of deep veins of right upper extremity; J44.0 Chronic obstructive pulmonary disease with (acute) lower respiratory infection; T38.0X5D Adverse effect of glucocorticoids and synthetic analogues, subsequent encounter; I50.9 Heart failure, unspecified; N18.9 Chronic kidney disease, unspecified; I25.10 Atherosclerotic heart disease of native coronary artery without angina pectoris; Z85.3 Personal history of malignant neoplasm of breast; R53.1 Weakness; E11.22 Type 2 diabetes mellitus with diabetic chronic kidney disease; E66.01 Morbid (severe) obesity due to excess calories; E03.9 Hypothyroidism, unspecified; E78.5 Hyperlipidemia, unspecified; F32.A Depression, unspecified; F41.9 Anxiety disorder, unspecified; G47.33 Obstructive sleep apnea (adult) (pediatric); I25.2 Old myocardial infarction; I27.20 Pulmonary hypertension, unspecified; I48.91 Unspecified atrial fibrillation; J44.9 Chronic obstructive pulmonary disease, unspecified; K21.9 Gastro-esophageal reflux disease without esophagitis; M06.9 Rheumatoid arthritis, unspecified; Z79.899 Other long term (current) drug therapy; Z96.611 Presence of right artificial shoulder joint; Z96.653 Presence of artificial knee joint, bilateral; Z96.642 Presence of left artificial hip joint; I45.10 Unspecified right bundle-branch block; Z88.6 Allergy status to analgesic agent; Z91.041 Radiographic dye allergy status; Z88.5 Allergy status to narcotic agent; Z88.8 Allergy status to other drugs, medicaments and biological substances; Z91.048 Other nonmedicinal substance allergy status; E89.2 Postprocedural hypoparathyroidism
CPT/HCPCS: 36415; 36600; 70030-TC; 71045; 83735; 84100; 85025; 94640; 94760; 97161; A4663; A6209; J0885; J1815; J3490; J7512